=== PATIENT | female | born 1995 | race Caucasian/White ===

== ENCOUNTER 2019-11-30 11:30 | Emergency (ER) | payer OTHER ==
[2019-11-30 11:40] VITALS: BMI 23.0
--- NOTE | 2019-11-30 11:52 | PDOC ---
*Physical Exam - Vital Signs Last Vital Signs Temp Pulse Resp BP Pulse Ox 98.5 F 96 H 18 119/75 100 11/30/19 11:35 11/30/19 11:35 11/30/19 11:35 11/30/19 11:35 11/30/19 11:35 - Physical Exam 11/30/19 11:51 asked to evaluate patient for possible transfer to [facility] for evaluation of labor. patient reports that she is 22 weeks by ultrasound. States that she has cramping pelvic pain and some vaginal spotting. Patient appears slightly uncomfortable, but there is no sign of active labor. Will transfer to [facility]. ED Treatment Course - LABORATORY CBC & Chemistry Diagram: 11/30/19 12:55 Medical Decision Making - Medical Decision Making 11/30/19 11:56 asked to evaluate patient for possible transfer to [facility] for evaluation of labor. patient reports that she is 22 weeks by ultrasound. States that she has cramping pelvic pain and some vaginal spotting. Patient appears slightly uncomfortable, but there is no sign of active labor. Will transfer to [facility]. Discharge - Discharge Information Problems reviewed: Yes Clinical Impression/Diagnosis: Condition: Stable Disposition: HOME - Admission No - Follow up/Referral Referrals: Estella Street MD [Staff Physician] - Kai Galvez MD [Primary Care Provider] - - Patient Discharge Instructions Additional Instructions: Patient is being discharge home as per MD orders. 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 Keep next scheduled MD appointment. Patient may return to activities of daily living, diet as tolerated and increase oral intake. Return to labor and delivery if any signs of contractions strong and regular, decrease movement, rupture of membranes or any vaginal bleeding. All questions answered prior to discharge. Patient verbalizes understanding of discharge instructions. Print Language: LITHUANIAN - Post Discharge Activity
[2019-11-30 12:41] VITALS: BP 124/82; PULSE 90; TEMP 98.3
--- NOTE | 2019-11-30 13:25 | PD.OB.PROG ---
Past Medical History - Primary Care Physician Documenting Provider Type: Laborist - Admission Chief Complaint: VAGINAL SPOTTING AT 22 weeks History Source: Patient Limitations to Obtaining History: No Limitations - Nursing Documentation Maternal Triage Index: Maternal Triage Index ( Priority 2, Urgent MFTI) Nursing Documentation Reviewed: Yes - Past Medical History ...: 2 ...Para: 0 ...Term: 0 ...: 0 ...Spon : 0 ...Induced : 1 ...Living Children: 0 ... Weeks Gestation by Dates: 22.2 ...EDC by Dates: 04/02/20 - Past Surgical History Past Surgical History: Yes: None - Smoking History Smoking history: Never smoked Have you smoked in the past 12 months: No Physical Exam - Obstetrical Vital Signs: Vital Signs Temperature 98.3 F 11/30/19 12:15 Pulse Rate 90 11/30/19 12:15 Respiratory Rate 18 11/30/19 12:15 Blood Pressure 124/82 11/30/19 12:15 O2 Sat by Pulse Oximetry (%) 99 11/30/19 12:15 Constitutional: Yes: Well Nourished Eyes: Yes: WNL HENT: Yes: WNL Neck: Yes: WNL Cardiovascular: Yes: WNL Lungs: Normal air movement - Abdominal Exam/OB Number of Fetuses: Single Contractions: No Monitor Mode: External Heart Rate (range): 150 Decelerations: None - Vaginal Exam/OB Vaginal Exam Deferred: No Vaginal Bleeding: No (no bleeding noted), Light Speculum Exam: Yes Dilatation (cm): closed Amniotic Membrane Status: Intact Problem List - Problems (1) 22 weeks gestation of Code(s): Z3A.22 - 22 WEEKS GESTATION OF (2) Vaginal bleeding in patient after first trimester Code(s): O46.90 - ANTEPARTUM HEMORRHAGE, UNSPECIFIED, UNSPECIFIED TRIMESTER Assessment/Plan h/o vaginal spotting; no bleeding now 22 weeks sonogram; 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
[2019-11-30 13:31] LABS: BASO % 0.1 % (0-2.0); EOS % 0.7 % (0-4.5); HEMOGLOBIN 11.1 GM/dL (10.7-15.3); LYMPH % 16.6 % (8-40); MCH 34.4 pg (25.7-33.7); MCHC 35.8 g/dl (32.0-36.0); MEAN CELL VOLUME 96.3 fl (80-96); MEAN PLT VOLUME 9.5 fl (7.5-11.1); MONO % 4.8 % (3.8-10.2); NEUT % 77.8 % (42.8-82.8); PLATELET COUNT 180 K/MM3 (134-434); RBC 3.22 M/mm3 (3.60-5.2); RDW 12.9 % (11.6-15.6); WHITE BLOOD COUNT 6.4 K/mm3 (4.0-10.0)
[2019-11-30 13:53] LABS: EPI CELLS 9 /uL (0-25.1); HYALINE CASTS 0 /uL (0-3.1); URINE APPEARANCE TURBID; URINE BACTERIA 1683 /uL (0-1359); URINE BILIRUBIN NEGATIVE (NEGATIVE); URINE COLOR YELLOW; URINE GLUCOSE (UA) NEGATIVE (NEGATIVE); URINE KETONE NEGATIVE (NEGATIVE); URINE LEUK ESTERASE TRACE (NEGATIVE); URINE NITRITE NEGATIVE (NEGATIVE); URINE PROTEIN NEGATIVE (NEGATIVE); URINE RBC 364 /uL (0-23.9); URINE UROBILINOGEN 0.2 mg/dL (0.2-1.0); URINE WBC 14 /uL (0-25.8)
== END 2019-11-30 15:00 | disposition home or self-care (01) ==
LOC: JER 11:30
DX: R10.2 Pelvic and perineal pain (principal)
CPT/HCPCS: 36415; 81003; 85025; 87086; 99284-25

== ENCOUNTER 2020-03-19 07:27 | Inpatient (IN) | payer OTHER ==
[2020-03-19] MEDS ORDERED: CITRIC ACID/SODIUM CITRATE 30 ML UNIT-DOSE CUP PO ONE (08:08)
[2020-03-19] MEDS ORDERED: ELECTROLYTE-148 SOLN 1,000 ML IV SCH (08:15)
[2020-03-19 09:02] LABS: BASO % 0.4 % (0-2.0); EOS % 0.6 % (0-4.5); HEMATOCRIT 35.9 % (32.4-45.2); HEMOGLOBIN 12.6 GM/dL (10.7-15.3); LYMPH % 16.1 % (8-40); MCH 32.7 pg (25.7-33.7); MEAN CELL VOLUME 93.6 fl (80-96); MEAN PLT VOLUME 9.5 fl (7.5-11.1); MONO % 6.6 % (3.8-10.2); NEUT % 76.3 % (42.8-82.8); PLATELET COUNT 166 K/MM3 (134-434); RBC 3.83 M/mm3 (3.60-5.2); RDW 13.1 % (11.6-15.6); WHITE BLOOD COUNT 7.4 K/mm3 (4.0-10.0)
[2020-03-19 09:09] LABS: INR 0.9 (0.83-1.09); PROTHROMBIN TIME (PATIENT) 11.1 SEC (9.7-13.0)
[2020-03-19 09:12] LABS: ACTIVATED PTT 25.8 SECONDS (25.2-36.5)
[2020-03-19 09:14] VITALS: BMI 29.6
[2020-03-19] MEDS ORDERED: FENTANYL/BUPIVACAINE/NS/PF - PCEA - 50 ML DISP.SYRIN EP ONE ×3 (09:26→17:03)
[2020-03-19] MEDS ORDERED: PCA PUMP NR ONE (09:26)
[2020-03-19 09:28] LABS: POTASSIUM 4.1 mmol/L (3.5-5.1)
[2020-03-19 09:31] LABS: BLOOD UREA NITROGEN 8.2 mg/dL (7-18); CALCIUM 9.3 mg/dL (8.5-10.1)
[2020-03-19 09:35] LABS: CREATININE 0.4 mg/dL (0.55-1.3)
[2020-03-19] MEDS ORDERED: NALOXONE HCL 0.4 MG/ML VIAL IVPUSH PRN (11:35)
[2020-03-19] MEDS ORDERED: FENTANYL/BUPIVACAINE/NS/PF - PCEA - 50 ML DISP.SYRIN EP SCH (11:45)
[2020-03-19 11:48] LABS: HIV INTERPRETATION NEGATIVE (NEGATIVE)
[2020-03-19] MEDS ORDERED: ACETAMINOPHEN 325 MG TABLET (FP) PO PRN (15:04)
[2020-03-19] MEDS ORDERED: BENZOCAINE 20% 57 GM BOTTLE TP PRN (15:04)
[2020-03-19] MEDS ORDERED: WITCH HAZEL 50% (TUCKS) 40 PAD/JAR PAD TP PRN (15:04)
[2020-03-19] MEDS ORDERED: IBUPROFEN 600 MG TABLET (FP) PO PRN (15:04)
[2020-03-19] MEDS ORDERED: METHYLERGONOVINE MALEATE 0.2 MG/1 ML AMP IM PRN (15:04)
[2020-03-19] MEDS ORDERED: BISACODYL 10 MG SUPP.RECT PR PRN (15:04)
[2020-03-19] MEDS ORDERED: BENZOCAINE 28 GM HEMORRHOIDAL OINTMENT PR PRN (15:04)
[2020-03-19] MEDS ORDERED: OXYTOCIN 30 UNITS in 0.9% NS 30 UNIT/500 ML INFUS.BAG IVPB SCH (15:15)
[2020-03-19] MEDS ORDERED: LIDOCAINE HCL 1% PRESERVATIVE FREE - 30ML VIAL ONE (17:52)
[2020-03-19] MEDS ORDERED: OXYTOCIN 30 UNITS in 0.9% NS 30 UNIT/500 ML INFUS.BAG IVPB ONE (17:52)
[2020-03-19] MEDS ORDERED: OXYTOCIN 20 UNITS in 0.9% NS 20 UNIT/1,000 ML INFUS.BAG IV ONE (18:38)
[2020-03-19] MEDS ORDERED: IBUPROFEN 600 MG TABLET (FP) PO ONE (19:03)
[2020-03-19] MEDS ORDERED: ACETAMINOPHEN 325 MG TABLET (FP) ONE (19:03)
[2020-03-19] MEDS: OXYTOCIN 20 UNITS in 0.9% NS 20 UNIT/1,000 ML INFUS.BAG IV SCH (19:05)
[2020-03-19 20:45] LABS: CORD BASE EXCESS -3.7 mmol/L (0-2); CORD HCO3 22.4 mmHg (20-29); CORD PCO2 44.1 mmHg (30-78); CORD pH 7.324 (7.14-7.44)
[2020-03-20 08:47] LABS: BASO % 0.3 % (0-2.0); EOS % 0.9 % (0-4.5); HEMATOCRIT 31.8 % (32.4-45.2); HEMOGLOBIN 11.4 GM/dL (10.7-15.3); LYMPH % 15.3 % (8-40); MCHC 35.7 g/dl (32.0-36.0); MEAN CELL VOLUME 92.7 fl (80-96); MEAN PLT VOLUME 9.3 fl (7.5-11.1); MONO % 7.5 % (3.8-10.2); PLATELET COUNT 157 K/MM3 (134-434); RBC 3.44 M/mm3 (3.60-5.2); RDW 13.2 % (11.6-15.6); WHITE BLOOD COUNT 7.9 K/mm3 (4.0-10.0)
[2020-03-21] MEDS: OXYTOCIN 20 UNITS in 0.9% NS 20 UNIT/1,000 ML INFUS.BAG IV SCH (01:59)
[2020-03-21 10:04] VITALS: BP 134/75; PULSE 84; TEMP 97.9
== END 2020-03-21 12:15 | disposition home or self-care (01) | DRG 560 ==
LOC: JDEL 07:27 → JLDR 08:00 → J3W 20:30
PROVIDERS: ADMIT Obstetrics & Gynecology; ATTEND Obstetrics & Gynecology
PROC: 10E0XZZ Delivery of Products of Conception, External Approach (ICD-10-PCS; principal; 2020-03-19)
DX: O42.02 Full-term premature rupture of membranes, onset of labor within 24 hours of rupture (principal); O70.0 First degree perineal laceration during delivery; O69.81X0 Labor and delivery complicated by cord around neck, without compression, not applicable or unspecified; Z3A.38 38 weeks gestation of pregnancy; Z37.0 Single live birth
CPT/HCPCS: 36415; 36600; 59409; 80048; 82803; 85025; 85610; 85730; 86780; 86850; 86900; 86901; 87340; 87389; C9803; U0003